=== PATIENT | female | born 1985 | race Caucasian/White ===

== ENCOUNTER 2019-11-19 10:42 | Emergency (ER) | payer OTHER ==
[2019-11-19] MEDS ORDERED: Adacel (T-DAP) 0.5 ML SYRINGE ONE (10:56)
[2019-11-19] MEDS ORDERED: Morphine 4 MG/ML VIAL ONE (10:57)
[2019-11-19] MEDS ORDERED: Ondansetron ODT 4 MG TAB ONE (10:58)
[2019-11-19] MEDS ORDERED: Morphine 2 MG/ML SYRINGE ONE (10:58)
[2019-11-19 11:22] LABS: Hemoglobin 13.3 g/dL (12.0-16.0); Mean Corpuscular HGB CONC 31.6 g/dL (32.0-36.0); Mean Corpuscular Hemoglobin 28.6 pg (27.0-31.0); Mean Corpuscular Volume 90.5 fL (78.0-98.0); Mean Platelet Volume 13.3 fL (7.4-10.4); Platelet Count 201 thou/uL (130-400); RBC Distribution Width 12.8 % (11.5-14.5); Red Blood Cell (RBC) Count 4.66 mill/uL (4.20-5.40); White Blood Cell (WBC) Count 8.2 thou/uL (4.8-10.8)
[2019-11-19 11:28] LABS: ALT (SGPT) 18 U/L (8-55); AST (SGOT) 15 U/L (5-34); Albumin 4.2 g/dL (3.5-5.0); Alkaline Phosphatase 54 U/L (40-110); Anion Gap 15 mmol/L (10-20); BUN (Urea Nitrogen) 10 mg/dL (7.0-18.7); Bilirubin, Total 0.5 mg/dL (0.2-1.2); Calc. Creatinine Clearance 0 mL/min (70-130); Calcium 8.7 mg/dL (7.8-10.44); Carbon Dioxide 26 mmol/L (22-29); Chloride 104 mmol/L (98-107); Estimated GFR-MDRD 89; Globulin 2.7 g/dL (2.4-3.5); Glucose 101 mg/dL (70-105); Potassium 3.7 mmol/L (3.5-5.1); Protein, Total 6.9 g/dL (6.0-8.3); Sodium 141 mmol/L (136-145)
[2019-11-19 11:41] LABS: #Basophils 0.1 thou/uL (0.0-0.2); #Eosinphils 0.2 thou/uL (0.0-0.7); #Lymphocytes 2.1 thou/uL (1.20-3.40); #Monocytes 0.4 thou/uL (0.11-0.59); #Neutrophils 5.4 thou/uL (1.40-6.50); %Basophils 0.8 % (0.0-1.0); %Eosinophils 2.4 % (0.0-10.0); %Lymphocytes 25.1 % (21.0-51.0); %Monocytes 5.2 % (0.0-10.0); %Neutrophils 66.5 % (42.0-75.0); Large Platelets SLIGHT; MDiff Complete? YES; Platelet Morphology Comment Appears Adequate
--- NOTE | 2019-11-19 19:53 | CT ---
CT CERVICAL SPINE: Date: 11-19-[address] of the cervical spine was done following trauma. FINDINGS: There is loss of the normal cervical lordosis which may be due to muscle spasm. No fracture, dislocat ion or disc space arrowing was seen. The C1-2 dens distance is normal and the facet articulations jose ear normal. The soft tissues are normal in thickness. There is no sign of significant central canal s tenosis or severe foraminal narrowing. The surrounding soft tissues were unremarkable. The lung apice s are clear. IMPRESSION: Other than straightening of the cervical spine, which may be due to muscle spasm, No acute findings. Preliminary findings discussed with Dr. Sorenson at 11:39 a.m. on 11-19-2019. POS: HOME
--- NOTE | 2019-11-19 19:55 | CT ---
CT OF THE BRAIN WITHOUT CONTRAST: Date: 11-19-2019 FINDINGS: A noncontrast CT shows normal sized ventricles with no shift. No intracranial bleeding or extraaxial hematoma was seen. There is no sign of stroke, mass, or edema. The skull appears intact and the sphen oid sinus and mastoid air cells are clear. IMPRESSION: No acute intracranial findings. Preliminary report called to Dr. Sorenson at 11:39 on 11-19-2019. POS: HOME
--- NOTE | 2019-11-19 19:58 | CT ---
CT FACIAL BONES: Date: 11-19-[address] of the face was performed following trauma. FINDINGS: Soft tissue swelling and contusion is seen in the right infraorbital region. The underlying maxilla a nd maxillary sinuses appeared intact. No facial bone fractures were seen. The orbital rims, nasal bon es, and zygomatic arches appear intact, as does the mandible. The Paranasal sinuses are clear. The re troorbital areas appear normal. IMPRESSION: Right infraorbital soft tissue swelling but no acute bony findings. Preliminary report called to Dr. Sorenson at 11:39 a.m. on 11-19-2019. POS: HOME
== END 2019-11-19 11:53 | disposition home or self-care (01) ==
LOC: BURERS 10:42
DX: S06.9X9A Unspecified intracranial injury with loss of consciousness of unspecified duration, initial encounter (principal); S00.83XA Contusion of other part of head, initial encounter; K21.9 Gastro-esophageal reflux disease without esophagitis; F31.9 Bipolar disorder, unspecified; F41.9 Anxiety disorder, unspecified; F43.10 Post-traumatic stress disorder, unspecified; F25.9 Schizoaffective disorder, unspecified; F17.210 Nicotine dependence, cigarettes, uncomplicated; Z79.899 Other long term (current) drug therapy; W19.XXXA Unspecified fall, initial encounter
CPT/HCPCS: 36415; 70450; 70486; 72125; 80053; 85025; 90471; 90715; 96372; J2270; Q0162

== ENCOUNTER 2019-11-27 11:56 | Emergency (ER) | payer OTHER ==
--- NOTE | 2019-11-27 19:48 | RAD ---
RIGHT KNEE FOUR VIEWS: 11/27/19 Comparison is made with the prior study dated 02/22/12. A median sized joint effusion is present. While no major fracture was identified, there is a small fr agment of bone seen in the central portion of the joint that is not visible on the 2012 study. An avu lsion of bone of indeterminate age is presumed. The joint space is normal in width. IMPRESSION: Joint effusion. Small bony density seen in the central portion of the joint, a new finding since 2012 . I cannot tell if it is acute or older. This patient may need follow-up with an MRI to better asses s for an internal derangement. Code T POS: HOME
== END 2019-11-27 12:47 | disposition home or self-care (01) ==
LOC: BURERS 11:56
DX: S80.01XA Contusion of right knee, initial encounter (principal); K21.9 Gastro-esophageal reflux disease without esophagitis; J45.909 Unspecified asthma, uncomplicated; F31.9 Bipolar disorder, unspecified; F41.9 Anxiety disorder, unspecified; F25.9 Schizoaffective disorder, unspecified; F43.10 Post-traumatic stress disorder, unspecified; F17.210 Nicotine dependence, cigarettes, uncomplicated; Z79.899 Other long term (current) drug therapy; Z79.51 Long term (current) use of inhaled steroids; W18.30XA Fall on same level, unspecified, initial encounter